=== PATIENT | male | born 1980 | race Caucasian/White ===

== ENCOUNTER 2020-01-26 15:43 | Emergency (ER) | payer OTHER ==
[~2020-01-26] VITALS: Ht 177.8 cm; Wt 93.0 kg
[~2020-01-26 15:43] MED LIST: INDERAL LA120 M1 PO; TOPROL XL100 MG PO
[2020-01-26] MEDS ORDERED: CYMBALTA60 MG PO (16:11)
[2020-01-26 16:42] LABS: ABSOLUTE NEUTROPHILS 7.3 thou/uL (1.4-8.2); BASOPHILS 0.8 % (0.0-2.0); EOSINOPHILS 0.7 % (0.0-3.0); HEMATOCRIT 54.3 % (42.0-52.0); HEMOGLOBIN 17.8 gm/dL (14.0-18.0); LYMPHOCYTES 14.3 % (24.0-44.0); MCH 27.7 pg (26.0-34.0); MCHC 32.9 g/dL (28.0-37.0); MCV 84.4 fL (80.0-100.0); MONOCYTES 11.7 % (1.0-8.0); PLATELET COUNT 278 thou/uL (150-400); POLYS 72.5 % (36.0-66.0); RBC 6.43 mil/uL (4.50-6.00); RDW 17.8 % (10.5-14.5); WBC 10.1 thou/uL (4.0-11.0)
[2020-01-26 16:49] LABS: ANION GAP 11 mmol/L (7-16); BUN 15 mg/dL (7-18); CALCIUM 8.5 mg/dL (8.5-10.1); CHLORIDE 98 mmol/L (98-107); CO2 27 mmol/L (21-32); CREATININE 1.3 mg/dL (0.7-1.3); GLUCOSE 98 mg/dL (74-106); POTASSIUM 4.4 mmol/L (3.5-5.1); SODIUM 136 mmol/L (136-145)
[2020-01-26 16:59] LABS: SGOT 41 U/L (15-37); SGPT 48 U/L (30-65); TOTAL BILIRUBIN 1.7 mg/dL (0.2-1.0); TOTAL PROTEIN 7.5 g/dL (6.4-8.2); TROPONIN-I <0.06 ng/mL (<0.06)
[2020-01-26] MEDS ORDERED: ONDANSETRON HCL4 M2 PO (19:03)
[2020-01-26] MEDS ORDERED: ATIVAN1 M1 PO (19:03)
[2020-01-26 19:06] VITALS: BP 151/72
--- NOTE | 2020-01-27 07:40 | EKG ---
[facility] [place] [address] ELECTROCARDIOGRAM REPORT Name: CRYSTAL HOOKS [id number] Admission: 01/26/20 Attend Phys: Discharge: 01/26/20 Date of : 84 Report #: [id number] THIS REPORT FOR: cc: REVA Baron family physician/PCP REVA Baron family physician/PCP Flip Fountain MD [facility] THIS REPORT FOR: //name// [facility] ED Test Date: 2020-01-26 Test Time: 16:26:55 Pat Name: CRYSTAL HOOKS Department: Room: Gender: Educational Institution President: : 1980 Requested By: Puja Small Order Number: [id number] MD: Flip Fountain Measurements Intervals [place] Rate: 105 P: 79 UT: 139 QRS: 71 QRSD: 89 T: 49 QT: 340 QTc: 450 Interpretive Statements Sinus tachycardia J Point elev, probable normal early repol pattern Compared to ECG 11/06/2019 14:59:38 No significant changesjavascript:perform('study_confirm'); Electronically Signed On 01-27-2020 7:40:45 CDT by Flip Fountain [email or web address] <ELECTRONICALLY SIGNED> By: Flip Fountain MD, FACC 01/27/20 0740 1626 1626 Flip Fountain MD, FAC /EPI
== END 2020-01-26 19:06 | disposition home or self-care (01) ==
LOC: ER 15:43
PROVIDERS: Physician Assistant
DX: F41.9 Anxiety disorder, unspecified (principal); R11.10 Vomiting, unspecified; R10.11 Right upper quadrant pain; R25.1 Tremor, unspecified; R06.02 Shortness of breath; R61 Generalized hyperhidrosis; I10 Essential (primary) hypertension; Z79.899 Other long term (current) drug therapy; Z91.013 Allergy to seafood

== ENCOUNTER 2020-05-16 10:48 | Emergency (ER) | payer OTHER ==
[~2020-05-16] VITALS: Ht 177.8 cm; Wt 99.8 kg
[~2020-05-16 10:48] MED LIST changes: +ATIVAN1 M1 PO; +CYMBALTA60 MG PO; +ONDANSETRON HCL4 M2 PO
[2020-05-16] MEDS ORDERED: KLONOPIN2 MG PO (11:05)
[2020-05-16 11:20] LABS: ABSOLUTE NEUTROPHILS 4.3 thou/uL (1.4-8.2); BASOPHILS 0.2 % (0.0-2.0); EOSINOPHILS 0.3 % (0.0-3.0); HEMATOCRIT 43.7 % (42.0-52.0); LYMPHOCYTES 16.8 % (24.0-44.0); MCH 28.8 pg (26.0-34.0); MONOCYTES 8.6 % (1.0-8.0); PLATELET COUNT 230 thou/uL (150-400); POLYS 74.1 % (36.0-66.0); RBC 4.86 mil/uL (4.50-6.00); RDW 14.4 % (10.5-14.5); WBC 5.8 thou/uL (4.0-11.0)
[2020-05-16 11:24] LABS: ANION GAP 10 mmol/L (7-16); BUN 10 mg/dL (7-18); CALCIUM 7.4 mg/dL (8.5-10.1); CHLORIDE 101 mmol/L (98-107); CO2 23 mmol/L (21-32); CREATININE 1.4 mg/dL (0.7-1.3); GLUCOSE 127 mg/dL (74-106); POTASSIUM 3.6 mmol/L (3.5-5.1); SODIUM 134 mmol/L (136-145)
[2020-05-16 11:34] LABS: ALBUMIN 3.1 g/dL (3.4-5.0); SGOT 49 U/L (15-37); SGPT 81 U/L (30-65); TOTAL BILIRUBIN 0.7 mg/dL (0.2-1.0); TOTAL PROTEIN 5.7 g/dL (6.4-8.2); TROPONIN-I <0.06 ng/mL (<0.06)
--- NOTE | 2020-05-16 11:34 | EKG ---
[place] [address] [facility] [place] [address] ELECTROCARDIOGRAM REPORT Name: CRYSTAL HOOKS Room #: [facility] [id number] Admission: 05/16/20 Attend Phys: Discharge: Date of : 84 Report #: [id number] [facility] ED Test Date: 2020-05-16 Test Time: 10:59:06 Pat Name: CRYSTAL HOOKS Department: Room: Gender: M Sales Representative Printing: CAROL : 1980 Requested By: Bijan Farley Order Number: [id number] MD: Jovanni Olson Measurements Intervals [place] Rate: 97 P: 48 MS: 153 QRS: 26 QRSD: 93 T: 32 QT: 342 QTc: 435 Interpretive Statements Sinus rhythm Consider left atrial enlargement Consider left ventricular hypertrophy Anterior ST elevation, probably due to LVH Compared to ECG 01/26/2020 16:26:55 Electronically Signed On 05-16-2020 11:34:27 MI[employer]OS[employer]FT BI DEVELOPER by Jovanni Olson [email or web address] <ELECTRONICALLY SIGNED> By: Jovanni Olson MD 05/16/20 1134 1059 1059 MD FELIX Stone
[2020-05-16] MEDS ORDERED: KLONOPIN1 MG PO (15:03)
[2020-05-16 15:15] VITALS: BP 144/77
--- NOTE | 2020-05-17 10:35 | EKG ---
[facility] [place] [address] ELECTROCARDIOGRAM REPORT Name: CRYSTAL HOOKS [facility] [id number] Admission: 05/16/20 Attend Phys: Discharge: 05/16/20 Date of : 84 Report #: [id number] [facility] ED Test Date: 2020-05-16 Test Time: 14:55:50 Pat Name: CRYSTAL HOOKS Department: Room: Gender: M Filler Operator: CAROL : 1980 Requested By: Bijan Farley Order Number: [id number] MD: Flip Fountain Measurements Intervals [place] Rate: 88 P: 51 TN: 141 QRS: 36 QRSD: 96 T: 39 QT: 375 QTc: 454 Interpretive Statements Sinus rhythm Probable left atrial enlargement Left ventricular hypertrophy J Point elev, probable normal early repol pattern Compared to ECG 05/16/2020 10:59:06 No significant changes Electronically Signed On 05-17-2020 10:35:02 MARBLE MACHINE OPERATOR by Flip Fountain [email or web address] <ELECTRONICALLY SIGNED> By: Flip Fountain MD, [facility] 05/17/20 1035 D: 01/1454 54 Flip Fountain MD, FACC /EPI
== END 2020-05-16 15:16 | disposition home or self-care (01) ==
LOC: ER 10:48
PROVIDERS: Emergency Medicine
DX: R07.89 Other chest pain (principal); I10 Essential (primary) hypertension; Z91.013 Allergy to seafood; Z79.899 Other long term (current) drug therapy

== ENCOUNTER 2020-06-05 05:18 | Emergency (ER) | payer OTHER ==
[~2020-06-05] VITALS: Ht 177.8 cm; Wt 90.7 kg
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
[~2020-06-05 05:18] MED LIST changes: +KLONOPIN1 MG PO; +KLONOPIN2 MG PO
[2020-06-05] MEDS ORDERED: FINASTERIDE1 MG PO (05:21)
[2020-06-05 05:41] LABS: MCH 28.9 pg (26.0-34.0); RBC 5.39 mil/uL (4.50-6.00); WBC 3.2 thou/uL (4.0-11.0)
[2020-06-05 05:43] LABS: ABSOLUTE NEUTROPHILS 1.4 thou/uL (1.4-8.2); BASOPHILS 2.1 % (0.0-2.0); EOSINOPHILS 0.3 % (0.0-3.0); HEMATOCRIT 48.1 % (42.0-52.0); HEMOGLOBIN 15.6 gm/dL (14.0-18.0); MCHC 32.3 g/dL (28.0-37.0); MCV 89.2 fL (80.0-100.0); MONOCYTES 12.3 % (1.0-8.0); PLATELET COUNT 209 thou/uL (150-400); POLYS 42.3 % (36.0-66.0); RDW 15.7 % (10.5-14.5)
[2020-06-05 05:49] LABS: ANION GAP 8 mmol/L (7-16); BUN 6 mg/dL (7-18); CHLORIDE 98 mmol/L (98-107); CO2 31 mmol/L (21-32); CREATININE 1.6 mg/dL (0.7-1.3); GLUCOSE 91 mg/dL (74-106); POTASSIUM 3.6 mmol/L (3.5-5.1); SODIUM 137 mmol/L (136-145)
[2020-06-05 05:59] LABS: ALBUMIN 3.6 g/dL (3.4-5.0); SGOT 172 U/L (15-37); SGPT 187 U/L (30-65); TOTAL BILIRUBIN 1.9 mg/dL (0.2-1.0); TOTAL PROTEIN 6.5 g/dL (6.4-8.2); TROPONIN-I <0.06 ng/mL (<0.06)
[2020-06-05 07:51] VITALS: BP 172/100
--- NOTE | 2020-06-05 07:52 | EKG ---
[address] [employer] [place] [address] ELECTROCARDIOGRAM REPORT Name: CRYSTAL HOOKS [facility] [id number] Admission: 06/05/20 Attend Phys: Discharge: Date of : 84 Report #: [id number] [facility] ED Test Date: 2020-06-05 Test Time: 05:25:56 Pat Name: CRYSTAL HOOKS Department: Room: Gender: M Appraisal Analyst: julius : 1980 Requested By: Mikel Vann Order Number: [id number] MD: Flip Fountain Measurements Intervals [place] Rate: 93 P: 42 MA: 166 QRS: 44 QRSD: 104 T: 19 QT: 382 QTc: 476 Interpretive Statements Sinus rhythm Probable left atrial enlargement Left ventricular hypertrophy J Point elev, probable normal early repol pattern Borderline prolonged QT interval Baseline wander in lead(s) V3 Compared to ECG 05/16/2020 14:55:50 ST (T wave) deviation now present Electronically Signed On 06-05-2020 7:52:15 FINISHING RANGE FEEDER by Flip Fountain [email or web address] <ELECTRONICALLY SIGNED> By: Flip Fountain MD, [facility] 06/05/20 0752 0525 0525 Flip Fountain MD, [facility] /EPI
== END 2020-06-05 08:03 | disposition home or self-care (01) ==
LOC: ER 05:18
PROVIDERS: Emergency Medicine
DX: R07.89 Other chest pain (principal); F41.9 Anxiety disorder, unspecified; F55.8 Abuse of other non-psychoactive substances; I10 Essential (primary) hypertension; G40.909 Epilepsy, unspecified, not intractable, without status epilepticus; Z79.899 Other long term (current) drug therapy; Z91.013 Allergy to seafood

== ENCOUNTER 2020-06-10 18:48 | Emergency (ER) | payer OTHER ==
[~2020-06-10] VITALS: Ht 177.8 cm; Wt 90.7 kg
[~2020-06-10 18:48] MED LIST changes: +FINASTERIDE1 MG PO
[2020-06-10 19:56] LABS: ABSOLUTE NEUTROPHILS 3.7 thou/uL (1.4-8.2); BASOPHILS 1.4 % (0.0-2.0); EOSINOPHILS 0.1 % (0.0-3.0); HEMATOCRIT 52.4 % (42.0-52.0); HEMOGLOBIN 17.1 gm/dL (14.0-18.0); LYMPHOCYTES 27.7 % (24.0-44.0); MCH 29.1 pg (26.0-34.0); MCHC 32.7 g/dL (28.0-37.0); MCV 89.1 fL (80.0-100.0); MONOCYTES 10.1 % (1.0-8.0); PLATELET COUNT 191 thou/uL (150-400); POLYS 60.7 % (36.0-66.0); RBC 5.88 mil/uL (4.50-6.00); RDW 16.1 % (10.5-14.5); WBC 6.1 thou/uL (4.0-11.0)
[2020-06-10 19:59] LABS: CALCIUM 7.8 mg/dL (8.5-10.1); CREATININE 1.4 mg/dL (0.7-1.3); POTASSIUM 3.9 mmol/L (3.5-5.1)
[2020-06-10 20:05] LABS: ALBUMIN 3.8 g/dL (3.4-5.0); DIRECT BILIRUBIN 0.8 mg/dL (<0.1-0.2); TOTAL BILIRUBIN 1.5 mg/dL (0.2-1.0); TOTAL PROTEIN 6.8 g/dL (6.4-8.2)
[2020-06-10] MEDS ORDERED: CLONAZEPAM 0.50.5 M1 PO (21:58)
[2020-06-10 22:05] LABS: URINE BILIRUBIN NEGATIVE (Negative); URINE BLOOD NEGATIVE (Negative); URINE CLARITY CLEAR; URINE COLOR YELLOW; URINE GLUCOSE-RANDOM* NEGATIVE (Negative); URINE KETONES NEGATIVE (Negative); URINE LEUKOCYTES-REFLEX NEGATIVE (Negative); URINE NITRITE-REFLEX NEGATIVE (Negative); URINE PROTEIN (DIPSTICK) TRACE (Negative); URINE SPECIFIC GRAVITY <= 1.005 (1.005-1.035)
[2020-06-10 22:13] LABS: AMP/METHAMP Negative (Negative); BARBITURATES Negative (Negative); BENZODIAZEPINES Negative (Negative); COCAINE Negative (Negative); METHADONE Negative (Negative); OPIATES Negative (Negative); PCP Negative (Negative)
--- NOTE | 2020-06-11 07:07 | EKG ---
[place] [address] [facility] [place] [address] ELECTROCARDIOGRAM REPORT Name: CRYSTAL HOOKS Room #: REG [facility]#: [id number] Admission: 06/10/20 Attend Phys: Discharge: Date of : 84 Report #: [id number] [facility] ED Test Date: 2020-06-10 Test Time: 19:08:04 Pat Name: CRYSTAL HOOKS Department: Room: Gender: M Collection Coordinator: ERIC : 1980 Requested By: Richie Nair Order Number: [id number] MD: Flip Fountain Measurements Intervals [place] Rate: 96 P: 64 ND: 130 QRS: 61 QRSD: 93 T: 47 QT: 351 QTc: 444 Interpretive Statements Sinus rhythm Consider left ventricular hypertrophy Compared to ECG 06/05/2020 05:25:56 No significant changes Electronically Signed On 06-11-2020 7:07:34 INSTRUCTIONAL TECHNOLOGY FACILITATOR by Flip Fountain [email or web address] <ELECTRONICALLY SIGNED> By: Flip Fountain MD, [facility] 06/11/20 0707 1908 1908 Flip Fountain MD, FACC /EPI
[2020-06-11 12:15] VITALS: BP 132/89
== END 2020-06-11 12:15 | disposition still patient (30) ==
LOC: ER 18:48
PROVIDERS: Emergency Medicine
DX: F10.10 Alcohol abuse, uncomplicated (principal); K70.10 Alcoholic hepatitis without ascites; F32.9 Major depressive disorder, single episode, unspecified; K85.90 Acute pancreatitis without necrosis or infection, unspecified; F19.10 Other psychoactive substance abuse, uncomplicated; I10 Essential (primary) hypertension; J45.909 Unspecified asthma, uncomplicated; Z79.899 Other long term (current) drug therapy; Z91.013 Allergy to seafood; Y90.8 Blood alcohol level of 240 mg/100 ml or more

== ENCOUNTER 2020-07-24 17:03 | Inpatient (IN) | payer OTHER ==
[~2020-07-24] VITALS: Ht 177.8 cm; Wt 100.3 kg
[~2020-07-24 17:03] MED LIST changes: +CLONAZEPAM 0.50.5 M1 PO
[2020-07-24 17:04] VITALS: BP 171/112
[2020-07-24 17:35] LABS: ABSOLUTE NEUTROPHILS 2.3 thou/uL (1.4-8.2); BASOPHILS 1.6 % (0.0-2.0); HEMATOCRIT 52.3 % (42.0-52.0); HEMOGLOBIN 17.2 gm/dL (14.0-18.0); LYMPHOCYTES 36.8 % (24.0-44.0); MCH 29.8 pg (26.0-34.0); MCHC 32.9 g/dL (28.0-37.0); MCV 90.5 fL (80.0-100.0); PLATELET COUNT 134 thou/uL (150-400); POLYS 50.6 % (36.0-66.0); RBC 5.78 mil/uL (4.50-6.00); RDW 15.7 % (10.5-14.5); WBC 4.5 thou/uL (4.0-11.0)
[2020-07-24 17:41] LABS: CALCIUM 7.3 mg/dL (8.5-10.1); CREATININE 1.4 mg/dL (0.7-1.3); POTASSIUM 3.6 mmol/L (3.5-5.1)
[2020-07-24 17:47] LABS: ALBUMIN 3.5 g/dL (3.4-5.0); MAGNESIUM 1.6 mg/dL (1.8-2.4); TOTAL BILIRUBIN 0.8 mg/dL (0.2-1.0); TOTAL PROTEIN 6.5 g/dL (6.4-8.2)
[2020-07-24 20:07] LABS: AMP/METHAMP Negative (Negative); BARBITURATES Negative (Negative); BENZODIAZEPINES Negative (Negative); COCAINE Negative (Negative); METHADONE Negative (Negative); OPIATES Negative (Negative); PCP Negative (Negative)
[2020-07-24 20:12] VITALS: BP 132/80
[2020-07-24 20:46] VITALS: BP 148/93
[2020-07-24 20:52] VITALS: BP 130/97
[2020-07-25 00:08] VITALS: BP 146/90
--- NOTE | 2020-07-25 01:11 | NUR ---
ASSUMED PT CARE AT 2054, PT IS ADMITTED FROM ER FOR ALCOHOL INTOXICATION, PT IS DROWSY, EASY TO AROUSE, ALERT AND ORIENTED, MAKES NEEDS KNOWN, ST UPON ARRIVAL NOW SR, ADMISSION ASSESSMENT, HISTORY AND EDUCATION COMPLETED, PT ON SEIZURE PROTOCOL, MEDS GIVEN PER JUN, NO NEEDS AT THIS TIME, WILL CONTINUE TO MONITOR FOR SEIZURES
[2020-07-25 01:44] VITALS: BP 146/90
--- NOTE | 2020-07-25 04:11 | NUR ---
PT REQUESTED MEDICATION FOR ANXIETY, STATES THAT HE WAS GOING TO HAVE A SEIZURE, PROVIDER NOTIFIED, NO ORDERS RECEIVED, IV TO THE LEFT FORE ARM TAKEN OUT, AMA PAPER SIGNED AND ON THE CHART, PT LEFT AMA AT AROUND 0350 ESCORTED BY NURSE
== END 2020-07-25 04:24 | disposition left against medical advice (07) | DRG 894 ==
LOC: ER 17:03 → EROBS 19:55 → 2N 21:31
PROVIDERS: Emergency Medicine; ADMIT Internal Medicine; ATTEND Internal Medicine
DX: F10.129 Alcohol abuse with intoxication, unspecified (principal); I10 Essential (primary) hypertension; F10.139 Alcohol abuse with withdrawal, unspecified; Y90.9 Presence of alcohol in blood, level not specified; E83.42 Hypomagnesemia; J45.909 Unspecified asthma, uncomplicated; Z53.21 Procedure and treatment not carried out due to patient leaving prior to being seen by health care provider; Z79.899 Other long term (current) drug therapy; Z91.013 Allergy to seafood
CPT/HCPCS: 10081

== ENCOUNTER 2020-08-25 17:32 | Emergency (ER) | payer OTHER ==
[~2020-08-25] VITALS: Ht 177.8 cm; Wt 99.8 kg
[2020-08-25] MEDS ORDERED: ZOFRAN ODT4 MG PO (19:57)
[2020-08-25] MEDS ORDERED: TYLENOL325 M1 PO (19:57)
[2020-08-25 20:10] VITALS: BP 130/82
== END 2020-08-25 20:09 | disposition home or self-care (01) ==
LOC: ER 17:32
DX: F10.129 Alcohol abuse with intoxication, unspecified (principal); G89.29 Other chronic pain; M54.9 Dorsalgia, unspecified; M25.569 Pain in unspecified knee; I10 Essential (primary) hypertension; J45.909 Unspecified asthma, uncomplicated; Z79.899 Other long term (current) drug therapy; Z91.040 Latex allergy status; Z91.013 Allergy to seafood; Y90.8 Blood alcohol level of 240 mg/100 ml or more